=== PATIENT | male | born 1940 | race Caucasian/White ===

== ENCOUNTER 2017-10-29 10:40 | Emergency (ER) | payer OTHER ==
[2017-10-29 11:56] LABS: BASOPHIL % 0.3 % (0-2); PLATELET COUNT 217 x10^3mcL (130-400); RED CELL DISTRIBUTION WIDTH 14.7 % (11.5-14.5)
[2017-10-29 12:31] LABS: CALCIUM 9.1 mg/dL (8.5-10.1); CARBON DIOXIDE 27.7 mmol/L (21-32); CHLORIDE SERUM 100 mmol/L (98-107); CREATININE SERUM 1.2 mg/dL (0.7-1.3); GLUCOSE SERUM 256 mg/dL (74-106); POTASSIUM SERUM 4.1 mmol/L (3.5-5.1); SODIUM SERUM 138 mmol/L (136-145)
[2017-10-29 12:36] LABS: ALBUMIN 3.9 g/dL (3.4-5.0); ALKALINE PHOSPHATASE 62 U/L (46-116); ALT/SGPT 26 U/L (16-63); AST/SGOT 20 U/L (15-37); BILIRUBIN TOTAL 0.53 mg/dL (0.20-1.00); TOTAL PROTEIN, SERUM 7.9 g/dL (6.4-8.2)
[2017-10-29 13:52] VITALS: BP 160/99
[2017-10-29 14:11] LABS: UA SPECIFIC GRAVITY 1.025 (1.005-1.035); microscopic required? YES; urine erythrocyte 2+ (NEGATIVE)
[2017-10-29] MEDS ORDERED: NAMENDA10 M2 PO (16:24)
[2017-10-29] MEDS ORDERED: EXELON4.6 MG/21 PO (16:24)
[2017-10-29] MEDS ORDERED: MYRBETRIQ25 MG PO (16:25)
== END 2017-10-29 14:23 | disposition home or self-care (01) ==
LOC: ED 10:40
PROVIDERS: Emergency Medicine
DX: J40 Bronchitis, not specified as acute or chronic (principal)
CPT/HCPCS: 36600

== ENCOUNTER 2017-10-29 15:46 | Inpatient (IN) | payer OTHER ==
[~2017-10-29] VITALS: Ht 157.5 cm; Wt 84.0 kg
[2017-10-29] MEDS ORDERED: EXELON4.6 MG/21 PO (16:24)
[2017-10-29] MEDS ORDERED: NAMENDA10 M2 PO (16:24)
[2017-10-29] MEDS ORDERED: MYRBETRIQ25 MG PO (16:25)
[2017-10-29 17:44] LABS: T3 TOTAL 1.15 ng/mL
[2017-10-29 18:09] LABS: CHOLESTEROL/HDL RATIO 4.5; MAGNESIUM 1.8 mg/dL (1.8-2.4); PHOSPHOROUS 1.9 mg/dL (2.5-4.9)
[2017-10-29 18:12] LABS: FREE T4 0.9 ng/dL (0.76-1.46); FREE THYROXINE INDEX 2.3 ug/dL (1.4-4.5)
[2017-10-29 18:13] VITALS: BP 135/76
[2017-10-29 21:50] VITALS: BP 159/88
[2017-10-30 00:41] LABS: AMPHETAMINE QUAL UR NONE DETECTED (NEG <=1000)
[2017-10-30 04:41] VITALS: BP 126/73
[2017-10-30 09:20] LABS: BASOPHIL % 0.2 % (0-2); PLATELET COUNT 186 x10^3mcL (130-400)
[2017-10-30 09:30] VITALS: BP 141/71
[2017-10-30 09:38] LABS: RED CELL DISTRIBUTION WIDTH 14.6 % (11.5-14.5)
[2017-10-30 10:13] LABS: CALCIUM 8.1 mg/dL (8.5-10.1); CARBON DIOXIDE 27.3 mmol/L (21-32); CHLORIDE SERUM 102 mmol/L (98-107); CREATININE SERUM 1.3 mg/dL (0.7-1.3); GLUCOSE SERUM 143 mg/dL (74-106); POTASSIUM SERUM 3.8 mmol/L (3.5-5.1); SODIUM SERUM 137 mmol/L (136-145)
[2017-10-30 12:40] VITALS: BP 141/75
[2017-10-30 17:50] VITALS: BP 131/80
[2017-10-30 20:06] VITALS: Ht 157.5 cm; Wt 84.0 kg
[2017-10-30 21:30] VITALS: BP 139/67
[2017-10-31 04:16] VITALS: BP 126/62
[2017-10-31 06:20] LABS: BASOPHIL % 0.4 % (0-2); PLATELET COUNT 170 x10^3mcL (130-400)
[2017-10-31 06:36] LABS: CALCIUM 8.1 mg/dL (8.5-10.1); CARBON DIOXIDE 25.6 mmol/L (21-32); CHLORIDE SERUM 102 mmol/L (98-107); CREATININE SERUM 1.2 mg/dL (0.7-1.3); GLUCOSE SERUM 126 mg/dL (74-106); MAGNESIUM 1.9 mg/dL (1.8-2.4); PHOSPHOROUS 2.8 mg/dL (2.5-4.9); POTASSIUM SERUM 3.6 mmol/L (3.5-5.1); SODIUM SERUM 138 mmol/L (136-145)
[2017-10-31 08:46] VITALS: BP 146/82
[2017-10-31 17:10] VITALS: BP 125/70
[2017-10-31 21:34] VITALS: BP 140/73
[2017-11-01 04:54] VITALS: BP 130/57
[2017-11-01 06:18] LABS: BASOPHIL % 0.3 % (0-2); PLATELET COUNT 175 x10^3mcL (130-400)
[2017-11-01 06:19] LABS: CALCIUM 8.5 mg/dL (8.5-10.1); CARBON DIOXIDE 27.4 mmol/L (21-32); CHLORIDE SERUM 101 mmol/L (98-107); CREATININE SERUM 1.3 mg/dL (0.7-1.3); GLUCOSE SERUM 117 mg/dL (74-106); MAGNESIUM 1.9 mg/dL (1.8-2.4); PHOSPHOROUS 3.4 mg/dL (2.5-4.9); POTASSIUM SERUM 3.8 mmol/L (3.5-5.1); SODIUM SERUM 137 mmol/L (136-145)
[2017-11-01 07:06] LABS: RED CELL DISTRIBUTION WIDTH 14.7 % (11.5-14.5)
[2017-11-01 12:25] VITALS: BP 133/66
[2017-11-01 17:30] VITALS: BP 141/79
[2017-11-01 21:11] VITALS: BP 129/74
[2017-11-02] MEDS ORDERED: LEVAQUIN750 MG PO ×2 (05:43→09:13)
[2017-11-02] MEDS ORDERED: CLINDAMYCIN HC300 MG PO ×2 (05:43→09:13)
[2017-11-02 06:23] VITALS: BP 134/77
[2017-11-02 06:36] LABS: BASOPHIL % 0.3 % (0-2); CALCIUM 8.8 mg/dL (8.5-10.1); CARBON DIOXIDE 28.8 mmol/L (21-32); CHLORIDE SERUM 100 mmol/L (98-107); CREATININE SERUM 1.2 mg/dL (0.7-1.3); GLUCOSE SERUM 124 mg/dL (74-106); MAGNESIUM 1.9 mg/dL (1.8-2.4); PLATELET COUNT 168 x10^3mcL (130-400); POTASSIUM SERUM 4.4 mmol/L (3.5-5.1); RED CELL DISTRIBUTION WIDTH 14.4 % (11.5-14.5); SODIUM SERUM 136 mmol/L (136-145)
[2017-11-02 08:10] VITALS: BP 161/89
[2017-11-02] MEDS ORDERED: METOPROLOL TART25 M1 PO (09:05)
[2017-11-02] MEDS ORDERED: ZES5 PO (09:06)
[2017-11-02] MEDS ORDERED: CEPACOL SORE TH1 LO4 MM (09:07)
[2017-11-02] MEDS ORDERED: ROBDML PO (09:07)
[2017-11-02] MEDS ORDERED: LAC PO (09:10)
[2017-11-02] MEDS ORDERED: ASPIR 8181 MG PO (09:17)
[2017-11-02 11:34] VITALS: BP 106/66; BP 161/89
[2017-11-02 11:42] VITALS: BP 106/66
== END 2017-11-02 12:45 | disposition home health service (06) | DRG 177 ==
LOC: ED 15:46 → DU 16:38 → MU 16:38 → DU 17:45 → MU 10-30 17:07
PROVIDERS: Family Medicine; Family Medicine Sports Medicine
DX: J69.0 Pneumonitis due to inhalation of food and vomit (principal); N17.0 Acute kidney failure with tubular necrosis; I51.9 Heart disease, unspecified; I08.0 Rheumatic disorders of both mitral and aortic valves; I10 Essential (primary) hypertension; G30.9 Alzheimer's disease, unspecified; F02.80 Dementia in other diseases classified elsewhere, unspecified severity, without behavioral disturbance, psychotic disturbance, mood disturbance, and anxiety; E86.0 Dehydration; N32.81 Overactive bladder; R31.9 Hematuria, unspecified; E11.65 Type 2 diabetes mellitus with hyperglycemia; E83.39 Other disorders of phosphorus metabolism; E78.5 Hyperlipidemia, unspecified; E03.9 Hypothyroidism, unspecified; Z68.33 Body mass index [BMI] 33.0-33.9, adult; Z98.49 Cataract extraction status, unspecified eye; Z98.1 Arthrodesis status
CPT/HCPCS: 36600; 82962; 83880; 84439; 94150; 97110-GP; 97116-GP; 97530-GP; J0696; J1885; J1956; J3490; J7030; J7620; Q0092

== ENCOUNTER 2018-07-12 19:47 | Inpatient (IN) | payer OTHER ==
[~2018-07-12] VITALS: Ht 170.2 cm; Wt 82.2 kg
[~2018-07-12 19:47] MED LIST: ASPIR 8181 MG PO; CEPACOL SORE TH1 LO4 MM; CLINDAMYCIN HC300 MG PO; EXELON4.6 MG/21 PO; LAC PO; LEVAQUIN750 MG PO; METOPROLOL TART25 M1 PO; MYRBETRIQ25 MG PO; NAMENDA10 M2 PO; ROBDML PO; ZES5 PO
[2018-07-12 19:49] VITALS: Ht 170.2 cm; Wt 82.2 kg
[2018-07-12 21:39] LABS: BASOPHIL % 0.1 % (0-2); CALCIUM 8.8 mg/dL (8.5-10.1); CARBON DIOXIDE 27.5 mmol/L (21-32); CHLORIDE SERUM 101 mmol/L (98-107); GLUCOSE SERUM 171 mg/dL (74-106); PLATELET COUNT 162 x10^3mcL (130-400); RED CELL DISTRIBUTION WIDTH 12.9 % (11.5-14.5); SODIUM SERUM 136 mmol/L (136-145)
[2018-07-12 21:44] LABS: ALBUMIN 4.3 g/dL (3.4-5.0); ALKALINE PHOSPHATASE 68 U/L (46-116); ALT/SGPT 36 U/L (16-63); AST/SGOT 27 U/L (15-37); BILIRUBIN TOTAL 1.54 mg/dL (0.20-1.00); TOTAL PROTEIN, SERUM 7.6 g/dL (6.4-8.2)
[2018-07-12] MEDS ORDERED: NAMENDA10 M2 (22:14)
[2018-07-12] MEDS ORDERED: PRIMIDONE50 MG PO (22:15)
[2018-07-12] MEDS ORDERED: EXELON4.6 MG/21 TD (22:15)
[2018-07-12] MEDS ORDERED: MYRBETRIQ25 MG PO (22:16)
[2018-07-13] VITALS (7 sets, daily range): BP systolic 116–185; BP diastolic 68–88
[2018-07-13 00:25] LABS: T3 TOTAL 1.02 ng/mL
[2018-07-13 00:29] LABS: CHOLESTEROL/HDL RATIO 3.4; MAGNESIUM 2.3 mg/dL (1.8-2.4); PHOSPHOROUS 3.3 mg/dL (2.5-4.9)
[2018-07-13 00:34] LABS: FREE T4 0.99 ng/dL (0.76-1.46); T4(THYROXINE) 5.8 ug/dL (4.7-13.3)
[2018-07-13 06:42] LABS: BASOPHIL % 0.1 % (0-2); PLATELET COUNT 157 x10^3mcL (130-400)
[2018-07-13 06:44] LABS: CALCIUM 8.4 mg/dL (8.5-10.1); CARBON DIOXIDE 29.1 mmol/L (21-32); CHLORIDE SERUM 104 mmol/L (98-107); CREATININE SERUM 1.2 mg/dL (0.7-1.3); GLUCOSE SERUM 173 mg/dL (74-106); MAGNESIUM 1.8 mg/dL (1.8-2.4); PHOSPHOROUS 3.4 mg/dL (2.5-4.9); SODIUM SERUM 144 mmol/L (136-145)
[2018-07-14 05:06] VITALS: BP 123/63
[2018-07-14 06:17] LABS: BASOPHIL % 0.3 % (0-2); PLATELET COUNT 144 x10^3mcL (130-400); RED CELL DISTRIBUTION WIDTH 13.3 % (11.5-14.5)
[2018-07-14 06:59] LABS: CALCIUM 8.1 mg/dL (8.5-10.1); CHLORIDE SERUM 103 mmol/L (98-107); CREATININE SERUM 1.7 mg/dL (0.7-1.3); GLUCOSE SERUM 170 mg/dL (74-106); PHOSPHOROUS 3.7 mg/dL (2.5-4.9); SODIUM SERUM 134 mmol/L (136-145)
[2018-07-14 07:29] LABS: ALBUMIN 3.4 g/dL (3.4-5.0); BILIRUBIN DIRECT 0.3 mg/dL (0.0-0.2); BILIRUBIN TOTAL 1.22 mg/dL (0.20-1.00)
[2018-07-14 09:23] VITALS: BP 114/75
[2018-07-14 11:18] LABS: AMPHETAMINE QUAL UR NONE DETECTED (See below)
[2018-07-14 13:09] LABS: microscopic required? YES; urine erythrocyte TRACE (NEGATIVE)
[2018-07-14 17:29] VITALS: BP 153/75
[2018-07-14 20:21] VITALS: BP 120/64
[2018-07-15 05:44] VITALS: BP 160/78
[2018-07-15 07:07] LABS: ALBUMIN 3.5 g/dL (3.4-5.0); ALKALINE PHOSPHATASE 52 U/L (46-116); ALT/SGPT 68 U/L (16-63); AST/SGOT 51 U/L (15-37); BILIRUBIN TOTAL 1.1 mg/dL (0.20-1.00); CALCIUM 8.3 mg/dL (8.5-10.1); CARBON DIOXIDE 27.9 mmol/L (21-32); CHLORIDE SERUM 106 mmol/L (98-107); CREATININE SERUM 1.5 mg/dL (0.7-1.3); GLUCOSE SERUM 121 mg/dL (74-106); MAGNESIUM 2.2 mg/dL (1.8-2.4); SODIUM SERUM 140 mmol/L (136-145); TOTAL PROTEIN, SERUM 6.4 g/dL (6.4-8.2)
[2018-07-15 07:45] LABS: BASOPHIL % 0.6 % (0-2); PLATELET COUNT 143 x10^3mcL (130-400); RED CELL DISTRIBUTION WIDTH 13.3 % (11.5-14.5)
[2018-07-15 08:56] VITALS: BP 133/62
[2018-07-15 16:36] VITALS: BP 160/87
[2018-07-15 17:50] VITALS: BP 167/80
[2018-07-15 20:38] VITALS: BP 161/81
[2018-07-16 06:06] VITALS: BP 176/95
[2018-07-16 06:35] LABS: ALBUMIN 3.6 g/dL (3.4-5.0); ALKALINE PHOSPHATASE 48 U/L (46-116); ALT/SGPT 57 U/L (16-63); AST/SGOT 40 U/L (15-37); BILIRUBIN TOTAL 0.8 mg/dL (0.20-1.00); CALCIUM 8.6 mg/dL (8.5-10.1); CARBON DIOXIDE 29.5 mmol/L (21-32); CHLORIDE SERUM 104 mmol/L (98-107); CREATININE SERUM 1.2 mg/dL (0.7-1.3); GLUCOSE SERUM 116 mg/dL (74-106); MAGNESIUM 2.1 mg/dL (1.8-2.4); PHOSPHOROUS 3.9 mg/dL (2.5-4.9); POTASSIUM SERUM 3.8 mmol/L (3.5-5.1); SODIUM SERUM 140 mmol/L (136-145); TOTAL PROTEIN, SERUM 6.4 g/dL (6.4-8.2)
[2018-07-16 06:51] LABS: BASOPHIL % 0.9 % (0-2); PLATELET COUNT 162 x10^3mcL (130-400); RED CELL DISTRIBUTION WIDTH 12.1 % (11.5-14.5)
[2018-07-16 07:31] VITALS: BP 127/67
[2018-07-16 08:57] VITALS: BP 148/79
[2018-07-16] MEDS ORDERED: NORCO1 TA2 PO (15:41)
[2018-07-16] MEDS ORDERED: LEVOFLOXACIN500 M1 PO (15:41)
[2018-07-16 15:59] VITALS: BP 148/79
== END 2018-07-16 16:15 | disposition home or self-care (01) | DRG 853 ==
LOC: ED 19:47 → MU 22:32
PROVIDERS: Emergency Medicine; Internal Medicine; Surgery
PROC: 0FT44ZZ Resection of Gallbladder, Percutaneous Endoscopic Approach (ICD-10-PCS; principal; 2018-07-13 14:00)
DX: A41.9 Sepsis, unspecified organism (principal); N17.0 Acute kidney failure with tubular necrosis; E87.1 Hypo-osmolality and hyponatremia; K80.00 Calculus of gallbladder with acute cholecystitis without obstruction; K82.1 Hydrops of gallbladder; D68.69 Other thrombophilia; E11.9 Type 2 diabetes mellitus without complications; E78.1 Pure hyperglyceridemia; N32.81 Overactive bladder; R74.0 Nonspecific elevation of levels of transaminase and lactic acid dehydrogenase [LDH]; G30.9 Alzheimer's disease, unspecified; F02.80 Dementia in other diseases classified elsewhere, unspecified severity, without behavioral disturbance, psychotic disturbance, mood disturbance, and anxiety; Z79.82 Long term (current) use of aspirin; Z68.29 Body mass index [BMI] 29.0-29.9, adult
CPT/HCPCS: 82962; 83880; 84439; 97110-GP; 97116-GP; 97530-GP; J0330; J0696; J1815; J1885; J2175; J2405; J2543; J2704; J3010; J3490; J7030; J7120; Q0092

== ENCOUNTER 2018-08-29 10:18 | Emergency (ER) | payer OTHER ==
[~2018-08-29] VITALS: Ht 177.8 cm; Wt 79.4 kg
[~2018-08-29 10:18] MED LIST changes: +EXELON4.6 MG/21 TD; +LEVOFLOXACIN500 M1 PO; +NAMENDA10 M2; +NORCO1 TA2 PO; +PRIMIDONE50 MG PO
[2018-08-29 10:42] VITALS: Ht 177.8 cm; Wt 79.4 kg
[2018-08-29 11:37] LABS: BASOPHIL % 1.3 % (0-2); PLATELET COUNT 166 x10^3mcL (130-400); RED CELL DISTRIBUTION WIDTH 13.4 % (11.5-14.5)
[2018-08-29 11:38] LABS: CALCIUM 8.7 mg/dL (8.5-10.1); CHLORIDE SERUM 106 mmol/L (98-107); CREATININE SERUM 1.2 mg/dL (0.7-1.3); GLUCOSE SERUM 209 mg/dL (74-106); POTASSIUM SERUM 3.7 mmol/L (3.5-5.1); SODIUM SERUM 142 mmol/L (136-145)
[2018-08-29 11:43] LABS: ALBUMIN 3.7 g/dL (3.4-5.0); ALKALINE PHOSPHATASE 72 U/L (46-116); ALT/SGPT 43 U/L (16-63); AST/SGOT 25 U/L (15-37); BILIRUBIN TOTAL 0.9 mg/dL (0.20-1.00); MAGNESIUM 1.9 mg/dL (1.8-2.4); TOTAL PROTEIN, SERUM 6.9 g/dL (6.4-8.2)
[2018-08-29 12:25] LABS: UA SPECIFIC GRAVITY >=1.030 (1.005-1.035); microscopic required? YES; urine erythrocyte TRACE (NEGATIVE)
[2018-08-29 16:22] VITALS: BP 132/75
== END 2018-08-29 16:23 | disposition home or self-care (01) ==
LOC: ED 10:18
PROVIDERS: Emergency Medicine
DX: R25.1 Tremor, unspecified (principal); F03.90 Unspecified dementia, unspecified severity, without behavioral disturbance, psychotic disturbance, mood disturbance, and anxiety
CPT/HCPCS: 36415; Q0092

== ENCOUNTER 2019-06-03 09:03 | Emergency (ER) | payer OTHER ==
[~2019-06-03] VITALS: Ht 167.6 cm; Wt 79.4 kg
[2019-06-03 09:05] VITALS: Ht 167.6 cm; Wt 79.4 kg
[2019-06-03 10:16] LABS: CALCIUM 8.7 mg/dL (8.5-10.1); CARBON DIOXIDE 29.8 mmol/L (21-32); CHLORIDE SERUM 108 mmol/L (98-107); CREATININE SERUM 1.2 mg/dL (0.7-1.3); GLUCOSE SERUM 128 mg/dL (74-106); POTASSIUM SERUM 4.6 mmol/L (3.5-5.1); SODIUM SERUM 143 mmol/L (136-145)
[2019-06-03 10:20] LABS: ALBUMIN 3.9 g/dL (3.4-5.0); ALKALINE PHOSPHATASE 63 U/L (46-116); ALT/SGPT 22 U/L (16-63); AST/SGOT 20 U/L (15-37); BILIRUBIN TOTAL 0.94 mg/dL (0.20-1.00); TOTAL PROTEIN, SERUM 7.2 g/dL (6.4-8.2)
[2019-06-03 10:36] LABS: BASOPHIL % 0.8 % (0-2); PLATELET COUNT 216 x10^3mcL (130-400); RED CELL DISTRIBUTION WIDTH 13.3 % (11.5-14.5)
[2019-06-03 11:40] VITALS: BP 124/82
== END 2019-06-03 11:40 | disposition home or self-care (01) ==
LOC: ED 09:03
PROVIDERS: Emergency Medicine
DX: G20 Parkinson's disease (principal); F03.90 Unspecified dementia, unspecified severity, without behavioral disturbance, psychotic disturbance, mood disturbance, and anxiety
CPT/HCPCS: 36415